=== PATIENT | female | born 1990 | race Caucasian/White ===

== ENCOUNTER 2016-05-14 19:24 | Emergency (ER) | payer SELFPAY ==
[~2016-05-14] VITALS: Ht 172.7 cm; Wt 105.9 kg
[2016-05-14] MEDS ORDERED: TRAMADOL HCL50 MG PO (20:03)
[2016-05-14] MEDS ORDERED: PEN-VEE K,VEET500 MG PO (20:03)
[2016-05-14] MEDS ORDERED: NAPROSYN500 MG PO (20:03)
[2016-05-14 20:35] VITALS: BP 144/96
== END 2016-05-14 20:36 | disposition home or self-care (01) ==
LOC: EME 19:24 → RME 19:24
DX: S02.5XXA Fracture of tooth (traumatic), initial encounter for closed fracture (principal); K04.7 Periapical abscess without sinus; F17.200 Nicotine dependence, unspecified, uncomplicated
CPT/HCPCS: 99281; 99283

== ENCOUNTER 2017-01-11 10:55 | Emergency (ER) | payer SELFPAY ==
[~2017-01-11] VITALS: Ht 170.2 cm; Wt 103.0 kg
[~2017-01-11 10:55] MED LIST: NAPROSYN500 MG PO; PEN-VEE K,VEET500 MG PO; TRAMADOL HCL50 MG PO
[2017-01-11 12:18] LABS: HEMATOCRIT 43.4 % (36.0-46.0); MCH 31.8 PG (29.0-34.0); MCHC 35.5 G/DL (30.0-36.0); MCV 89.5 FL (83-99); MEAN PLAT.VOLUME 10.8 uM^3 (9.5-12.4); PLATELET COUNT 195 K/uL (156-360); RBC DIS.WIDTH-CV 11.7 % (11.8-14.6); RBC DIS.WIDTH-SD 37.7 % (39-53); RED BLOOD COUNT 4.85 M/uL (3.80-5.20); WHITE BLOOD COUNT 3.4 K/uL (4.1-10.2)
[2017-01-11 12:30] LABS: CHLORIDE 107 mEq/L (99-109); POTASSIUM 3.8 mEq/L (3.7-5.4); SODIUM 139 mEq/L (136-147)
[2017-01-11 12:31] LABS: GLUCOSE 102 mg/dL (70-99)
[2017-01-11 12:33] LABS: ANION GAP 8 MEQ/L (2-14)
[2017-01-11 12:35] LABS: GFR ESTIMATE (CALCULATED) > 59 mL/min/
[2017-01-11 12:36] LABS: UREA NITROGEN (BUN) 10 mg/dL (9-23)
[2017-01-11 13:24] LABS: ADD MIUA? YES; BILIRUBIN NEGATIVE; BLOOD LARGE; COLOR YELLOW ((YELLOW)); GLUCOSE (STRIP) NEGATIVE; KETONES NEGATIVE; LEUKOCYTES MODERATE; NITRITE NEGATIVE; PROTEIN (STRIP) 30; SPECIFIC GRAVITY 1.027 (1.000-1.030)
[2017-01-11 13:42] LABS: BACTERIA 1+ /HPF; CASTS NONE SEEN /LPF; CRYSTALS NONE SEEN; EPITHELIAL CELLS 1+ /HPF; MUCUS 1+ /LPF
[2017-01-11] MEDS ORDERED: TESSALON PERLE100 MG PO (14:16)
[2017-01-11] MEDS ORDERED: ZITHROMAX250 MG PO (14:16)
[2017-01-11] MEDS ORDERED: VENTOLIN HFA18 GM IH (14:16)
[2017-01-11] MEDS ORDERED: PREDNISONE20 MG PO (14:16)
[2017-01-11 14:25] VITALS: BP 151/98
== END 2017-01-11 14:26 | disposition home or self-care (01) ==
LOC: EME 10:55
PROVIDERS: Physician Assistant
DX: J18.0 Bronchopneumonia, unspecified organism (principal); R10.2 Pelvic and perineal pain; R03.0 Elevated blood-pressure reading, without diagnosis of hypertension; Z53.29 Procedure and treatment not carried out because of patient's decision for other reasons; Z97.5 Presence of (intrauterine) contraceptive device; F17.200 Nicotine dependence, unspecified, uncomplicated; Z71.6 Tobacco abuse counseling
CPT/HCPCS: 71020; 80048; 81003; 85027; 94640; 99281; 99284; J7512